=== PATIENT | female | born 1960 | race Caucasian/White ===

== ENCOUNTER 2017-04-07 09:27 | Day surgery (SDC) | payer OTHER ==
[~2017-04-07] VITALS: Ht 157.5 cm; Wt 51.0 kg
[~2017-04-07 09:27] MED LIST: ASCO500; ESTR2; FISH OIL + D31 EACH; Hair, Skin & N1 EACH; MELATONIN 3 MG1 EACH; ZOLP12.5
== END 2017-04-07 11:30 | disposition home or self-care (01) ==
LOC: ORSCSDS 09:27
PROVIDERS: Internal Medicine Gastroenterology
PROC: 0DBK8ZX Excision of Ascending Colon, Via Natural or Artificial Opening Endoscopic, Diagnostic (ICD-10-PCS; principal; 2017-04-07 10:45)
DX: Z12.11 Encounter for screening for malignant neoplasm of colon (principal); D12.2 Benign neoplasm of ascending colon; K64.8 Other hemorrhoids; K57.30 Diverticulosis of large intestine without perforation or abscess without bleeding; Z86.010 Personal history of colon polyps; Z87.891 Personal history of nicotine dependence
CPT/HCPCS: 88305; J7120

== ENCOUNTER → 2019-03-02 | Outpatient (CLI) | payer OTHER ==
[2019-03-04 15:07] LABS: HPV 16 Negative (Negative); HPV 18 Negative (Negative); HPV OTHER HR TYPES Negative (Negative)
== END | disposition home or self-care (01) ==
LOC: LAB 17:32 → LAB SHORT 17:32
PROVIDERS: Internal Medicine
DX: Z12.4 Encounter for screening for malignant neoplasm of cervix (principal)
CPT/HCPCS: 87624; G0145

== ENCOUNTER 2022-10-16 10:15 | Day surgery (SDC) | payer OTHER ==
[~2022-10-16] VITALS: Ht 157.5 cm; Wt 50.4 kg
[2022-10-16] MEDS ORDERED: NAPR220 (10:45)
[2022-10-16] MEDS ORDERED: TRIM100 (10:45)
[2022-10-16] MEDS ORDERED: FISH OIL 1,2001 EAC7 (10:46)
[2022-10-16] MEDS ORDERED: Calcium Carbon500 MG (10:46)
[2022-10-16 12:45] VITALS: BP 105/63
== END 2022-10-16 12:10 | disposition home or self-care (01) ==
LOC: ORSCSDS 10:15
PROVIDERS: Internal Medicine Gastroenterology
PROC: 0DBM8ZX Excision of Descending Colon, Via Natural or Artificial Opening Endoscopic, Diagnostic (ICD-10-PCS; principal; 2022-10-16 11:30)
PROC: 0DBL8ZX Excision of Transverse Colon, Via Natural or Artificial Opening Endoscopic, Diagnostic (ICD-10-PCS; principal; 2022-10-16 11:30)
DX: Z12.11 Encounter for screening for malignant neoplasm of colon (principal); Z86.010 Personal history of colon polyps; K63.5 Polyp of colon; K57.30 Diverticulosis of large intestine without perforation or abscess without bleeding; K64.8 Other hemorrhoids; I73.00 Raynaud's syndrome without gangrene; Z79.899 Other long term (current) drug therapy; E87.6 Hypokalemia
CPT/HCPCS: 88305; J2704; J7120